=== PATIENT | female | born 1995 ===

== ENCOUNTER → 2017-07-31 | Outpatient (CLI) | payer BC, OTHER ==
--- NOTE | 2017-07-31 10:01 | DIAGNOSTIC IMAGING REPORT ---
L FOOT MIN 3 VIEWS CLINICAL HISTORY: 22 years-old Female presenting with BILATERAL FOOT PAIN. TECHNIQUE: Frontal, oblique, and lateral views COMPARISON: None. FINDINGS: No acute fracture or malalignment. No advanced degenerative change. No radiographic soft tissue abnormality. IMPRESSION: No acute osseous injury. Electronically signed by: Deacon Fernandez M.D. 07/31/2017 9:59 AM Dictated Date/Time: 07/31/2017 9:40 AM
--- NOTE | 2017-07-31 10:08 | DIAGNOSTIC IMAGING REPORT ---
R FOOT MIN 3 VIEWS CLINICAL HISTORY: Right foot pain COMPARISON: None. DISCUSSION: No fractures or subluxations are visualized. The plantar arch appears well-preserved. There are no erosive changes. There is a bipartite lateral sesamoid of the great toe. IMPRESSION: No significant bony abnormalities. Electronically signed by: Neri Waller M.D. 07/31/2017 10:07 AM Dictated Date/Time: 07/31/2017 10:06 AM
== END | disposition home or self-care (01) ==
LOC: C.RDSM 13:26
PROVIDERS: ATTEND Internal Medicine
DX: M79.671 Pain in right foot (principal)